=== PATIENT | female | born 1975 | race Caucasian/White ===

== ENCOUNTER 2022-12-03 20:42 | Emergency (ER) | payer SELFPAY ==
[~2022-12-03] VITALS: Ht 152.4 cm; Wt 86.0 kg
[2022-12-03 22:00] LABS: BASOPHILS % 0.7 % (0.0-2.0); EOSINOPHILS % 1.8 % (0.0-5.0); HEMATOCRIT. 39.9 % (36.0-48.0); HEMOGLOBIN. 13.4 g/dL (12.0-16.0); LYMPHOCYTES % 24.6 % (20.0-50.0); MEAN CORPUSCULAR HEMOGLOBIN 28.2 pg (28.0-32.0); MEAN CORPUSCULAR VOLUME 83.9 fL (81.0-99.0); MEAN PLATELET VOLUME 8.4 fl (7.4-10.4); MONOCYTES % 4.7 % (2.0-8.0); NEUTROPHILS % 68.2 % (40.0-76.0); PLATELET 306 x1000/uL (130-400); RED BLOOD CELL COUNT 4.76 mill/uL (4.2-5.4); RED CELL DISTRIBUTION WIDTH 13.1 % (11.6-14.6)
[2022-12-03 22:15] LABS: CHLORIDE 106 mEq/L (98-107)
[2022-12-04] MEDS ORDERED: KETOROLAC 30MG/ML VIAL IV STA (00:53)
[2022-12-04] MEDS ORDERED: SODIUM CHLORIDE 0.9% 1,000 ML IV ONE (01:00)
[2022-12-04 04:36] LABS: CLARITY URINE CLOUDY (CLEAR); COLOR URINE YELLOW (YELLOW); KETONES URINE NEGATIVE (NEGATIVE); LEUKOCYTE ESTERASE URINE TRACE (NEGATIVE); NITRITE URINE NEGATIVE (NEGATIVE); OCCULT BLOOD URINE NEGATIVE (NEGATIVE); PROTEIN URINE NEGATIVE (NEGATIVE); SPECIFIC GRAVITY URINE 1.014 (1.005-1.030); UROBILINOGEN URINE 0.2 E.U./dL (0.2-1.0)
[2022-12-04] MEDS ORDERED: HYDR-4001 MT (05:58)
[2022-12-04 06:00] VITALS: BP 128/71
== END 2022-12-04 06:22 | disposition home or self-care (01) ==
LOC: ER 20:42
DX: R10.33 Periumbilical pain (principal); E11.9 Type 2 diabetes mellitus without complications
CPT/HCPCS: 36415; 71045; 74176; 80053; 81003; 84484; 85025; 93005; 96361; 96374; 99285; J1885; J7030; Z7610